=== PATIENT | female | born 1970 | race Caucasian/White ===

== ENCOUNTER 2025-02-28 14:28 | Emergency (ER) | payer OTHER ==
[~2025-02-28] VITALS: Ht 165.1 cm; Wt 55.8 kg
[2025-02-28 14:31] VITALS: BP 101/77; TEMP 98.3; O2SAT 98
== END 2025-02-28 15:39 | disposition home or self-care (01) ==
LOC: ER 14:36
DX: R51.9 Headache, unspecified (principal); V43.52XA Car driver injured in collision with other type car in traffic accident, initial encounter; Y93.89 Activity, other specified; Y92.410 Unspecified street and highway as the place of occurrence of the external cause; Y99.8 Other external cause status
CPT/HCPCS: 70450-TC